=== PATIENT | female | born 1950 | race Caucasian/White ===

== ENCOUNTER 2016-12-29 18:44 | Inpatient (IN) | payer MEDICARE, OTHER ==
[~2016-12-29] VITALS: Ht 165.1 cm; Wt 73.5 kg
[2016-12-29] MEDS ORDERED: DICY20TA28 PO (19:10)
[2016-12-29] MEDS ORDERED: ALPR0.255 PO (19:10)
[2016-12-29] MEDS ORDERED: DICL100T2 PO (19:10)
[2016-12-29] MEDS ORDERED: CHOL1CRY2 PO (19:10)
[2016-12-29] MEDS ORDERED: CALC-1008 PO (19:10)
[2016-12-29] MEDS ORDERED: ESCI5TAB PO (19:10)
[2016-12-29] MEDS ORDERED: BUPR100T5 PO (19:10)
[2016-12-29 20:45] VITALS: BP 154/91
[2016-12-29] MEDS ORDERED: MAGNESIUM HYDROXIDE 30 ML LIQUID UDC PO PRN (21:30)
[2016-12-29] MEDS ORDERED: ACETAMINOPHEN 325 MG TABLET PO PRN (21:30)
[2016-12-29] MEDS ORDERED: MAG HYDROX/AL HYDROX/SIMETH 30 ML LIQUID UDC PO PRN (21:30)
[2016-12-29] MEDS: TEMAZEPAM 7.5 MG CAPSULE PO PRN (22:20)
[2016-12-29] MEDS ORDERED: TEMAZEPAM 7.5 MG CAPSULE ONE (22:27)
[2016-12-30 08:00] VITALS: BP 129/80
[2016-12-30] MEDS: ESCITALOPRAM OXALATE 10 MG TABLET PO SCH (16:13)
[2016-12-30 20:19] VITALS: BP 134/78
[2016-12-30] MEDS: DICYCLOMINE HCL 20 MG TABLET PO SCH (20:33)
[2016-12-30] MEDS: TEMAZEPAM 7.5 MG CAPSULE PO PRN (21:17)
[2016-12-30] MEDS: LORAZEPAM 0.5 MG TABLET PO PRN (22:50)
[2016-12-31] MEDS: DICYCLOMINE HCL 20 MG TABLET PO SCH ×4 (06:16→17:02)
[2016-12-31 07:30] VITALS: BP 123/69
[2016-12-31] MEDS: ESCITALOPRAM OXALATE 10 MG TABLET PO SCH (08:28)
[2016-12-31 16:00] VITALS: BP 128/76
[2016-12-31 20:30] VITALS: BP 118/69
[2016-12-31] MEDS: TEMAZEPAM 7.5 MG CAPSULE PO PRN (21:21)
[2017-01-01] MEDS: DICYCLOMINE HCL 20 MG TABLET PO SCH ×4 (00:56→18:32)
[2017-01-01] MEDS: LORAZEPAM 0.5 MG TABLET PO PRN (00:56)
[2017-01-01 07:30] VITALS: BP 128/65
[2017-01-01] MEDS: ESCITALOPRAM OXALATE 10 MG TABLET PO SCH (08:29)
[2017-01-01] MEDS: DOXYCYCLINE HYCLATE 100 MG TABLET PO SCH ×2 (14:19→21:17)
[2017-01-01 15:00] VITALS: BP 123/65
[2017-01-01 20:12] VITALS: BP 127/77
[2017-01-02] MEDS: DICYCLOMINE HCL 20 MG TABLET PO SCH ×4 (00:31→17:11)
[2017-01-02 07:26] LABS: BASOPHILS # (AUTO) 0.1 K/uL (0.0-8.0); BASOPHILS % (AUTO) 2.4 % (0.0-2.0); EOSINOPHILS # (AUTO) 0.1 K/uL (0.0-0.7); EOSINOPHILS % (AUTO) 2.2 % (0.0-7.0); HEMOGLOBIN 14.6 G/DL (12.0-16.0); LYMPHOCYTES # (AUTO) 1.6 K/UL (0.8-4.8); LYMPHOCYTES % (AUTO) 29.5 % (20.5-51.5); MEAN CORPUSCULAR HEMOGLOBIN 28.8 UUG (27.0-31.0); MEAN CORPUSCULAR HGB CONC 33 g/dL (32.0-37.0); MONOCYTES # (AUTO) 0.5 K/UL (0.1-1.30); MONOCYTES % (AUTO) 8.6 % (0.0-11.0); NEUTROPHILS # (AUTO) 3.1 K/UL (1.8-8.9); NEUTROPHILS % (AUTO) 57.3 % (38.5-71.5); PLATELET COUNT (AUTO) 179 K/UL (150-450); RED BLOOD CELL COUNT(AUTO) 5.06 MIL/UL (4.2-5.4); WHITE BLOOD COUNT (AUTO) 5.4 K/UL (4.0-11.2)
[2017-01-02 08:01] LABS: THYROID STIMULATING HORMONE 1.705 mIU/mL (0.358-3.740)
[2017-01-02 08:26] LABS: BILIRUBIN,TOTAL 0.6 mg/dL (0.2-1.0); CREATININE 0.9 mg/dL (0.6-1.3); MAGNESIUM 1.9 mg/dL (1.8-2.4); PHOSPHOROUS 3.2 mg/dL (2.5-4.9); TOTAL PROTEIN, SERUM 6.6 g/dL (6.4-8.2)
[2017-01-02 08:30] VITALS: BP 112/64
[2017-01-02] MEDS: ESCITALOPRAM OXALATE 10 MG TABLET PO SCH (09:07)
[2017-01-02] MEDS: DOXYCYCLINE HYCLATE 100 MG TABLET PO SCH ×2 (09:07→20:31)
[2017-01-02 15:50] VITALS: BP 101/61
[2017-01-02 20:20] VITALS: BP 119/64
[2017-01-02] MEDS: TEMAZEPAM 7.5 MG CAPSULE PO PRN (20:31)
[2017-01-03] MEDS: DICYCLOMINE HCL 20 MG TABLET PO SCH ×4 (06:00→17:41)
[2017-01-03 07:30] VITALS: BP 142/81
[2017-01-03] MEDS: ESCITALOPRAM OXALATE 10 MG TABLET PO SCH (09:37)
[2017-01-03] MEDS: DOXYCYCLINE HYCLATE 100 MG TABLET PO SCH ×2 (09:38→20:19)
[2017-01-03 10:27] VITALS: BP 133/74
[2017-01-03 15:26] VITALS: BP 142/81
[2017-01-03 20:05] VITALS: BP 131/77
[2017-01-03] MEDS: TEMAZEPAM 7.5 MG CAPSULE PO PRN (21:19)
[2017-01-04] MEDS: DICYCLOMINE HCL 20 MG TABLET PO SCH ×4 (06:11→18:22)
[2017-01-04 07:30] VITALS: BP 119/68
[2017-01-04] MEDS: ESCITALOPRAM OXALATE 10 MG TABLET PO SCH (08:59)
[2017-01-04] MEDS: DOXYCYCLINE HYCLATE 100 MG TABLET PO SCH ×2 (09:02→20:29)
[2017-01-04 15:50] VITALS: BP 115/51
[2017-01-04] MEDS: TEMAZEPAM 7.5 MG CAPSULE PO PRN (21:14)
[2017-01-04 21:25] VITALS: BP 153/82
[2017-01-05] MEDS: DICYCLOMINE HCL 20 MG TABLET PO SCH ×4 (00:23→17:42)
[2017-01-05 07:30] VITALS: BP 118/71
[2017-01-05] MEDS: ESCITALOPRAM OXALATE 10 MG TABLET PO SCH (08:38)
[2017-01-05 15:15] VITALS: BP 125/73
[2017-01-05] MEDS: LORAZEPAM 0.5 MG TABLET PO PRN ×2 (18:22→20:44)
[2017-01-05 20:21] VITALS: BP_SYST 120; BP_SYST 136; BP_DIAS 69; BP_DIAS 76
[2017-01-06] MEDS: DICYCLOMINE HCL 20 MG TABLET PO SCH ×4 (00:13→17:00)
[2017-01-06] MEDS: TEMAZEPAM 7.5 MG CAPSULE PO PRN ×2 (00:13→21:27)
[2017-01-06] MEDS: ESCITALOPRAM OXALATE 10 MG TABLET PO SCH (08:33)
[2017-01-06 16:00] VITALS: BP 120/77
[2017-01-06] MEDS: LORAZEPAM 0.5 MG TABLET PO PRN (19:53)
[2017-01-06 20:30] VITALS: BP 138/78
[2017-01-07] MEDS: DICYCLOMINE HCL 20 MG TABLET PO SCH ×3 (00:41→12:26)
[2017-01-07 07:30] VITALS: BP 116/71
[2017-01-07] MEDS ORDERED: ESCITALOPRAM OXALATE 10 MG TABLET PO SCH (09:00)
== END 2017-01-07 15:26 | disposition home or self-care (01) | DRG 885 ==
LOC: ER 18:44 → GPS 20:39
PROVIDERS: ADMIT Psychiatry & Neurology Psychosomatic Medicine; ATTEND Internal Medicine
DX: F33.2 Major depressive disorder, recurrent severe without psychotic features (principal); Z91.5 Personal history of self-harm; K21.9 Gastro-esophageal reflux disease without esophagitis; M81.0 Age-related osteoporosis without current pathological fracture; M19.90 Unspecified osteoarthritis, unspecified site; Z79.899 Other long term (current) drug therapy; M06.9 Rheumatoid arthritis, unspecified; E78.5 Hyperlipidemia, unspecified; Z88.0 Allergy status to penicillin; H91.90 Unspecified hearing loss, unspecified ear; Z85.3 Personal history of malignant neoplasm of breast
CPT/HCPCS: 36415; 83735; 84100; 84443; 85025